=== PATIENT | male | born 1930 | race Caucasian/White ===

== ENCOUNTER 2016-06-01 18:03 | Inpatient (IN) | payer OTHER, BC ==
[~2016-06-01] VITALS: Ht 177.8 cm; Wt 78.5 kg
[~2016-06-01 18:03] MED LIST: ASPIRIN81 M1 PO; KEFLEX500 MG PO; LANSOPRAZOLE30 MG PO; LEVAQUIN500 MG PO; LO-DOSE ASPIRIN81 M2 PO; LORAZEPAM0.5 MG PO; PREVACID15 MG PO; TYLENOL EXTRA500 MG PO; XANAX0.5 MG PO; ZOLOFT50 MG PO
[2016-06-01 18:33] LABS: HEMATOCRIT 40.5 % (38.0-50.0); MCHC 35.6 G/DL (30.0-36.0); MEAN PLAT.VOLUME 10.1 uM^3 (9.0-12.4); PLATELET COUNT 170 K/uL (156-360); RBC DIS.WIDTH-CV 14.7 % (11.8-14.6); RED BLOOD COUNT 5.15 M/uL (4.00-5.50); WHITE BLOOD COUNT 7.6 K/uL (4.1-10.2)
[2016-06-01 18:34] LABS: MCV 78.6 FL (86-99)
[2016-06-01 18:41] LABS: CHLORIDE 99 mEq/L (99-109); POTASSIUM 4.2 mEq/L (3.7-5.4); SODIUM 130 mEq/L (136-147)
[2016-06-01 18:43] LABS: GLUCOSE 137 mg/dL (70-99)
[2016-06-01 18:44] LABS: ANION GAP 11 MEQ/L (2-14)
[2016-06-01 18:45] LABS: TOTAL BILIRUBIN 1.6 mg/dL (0.0-1.0)
[2016-06-01 18:47] LABS: ALKALINE PHOSPHATASE 248 IU/L (3-129); GFR ESTIMATE (CALCULATED) > 59 mL/min/
[2016-06-01 18:48] LABS: UREA NITROGEN (BUN) 17 mg/dL (9-23)
[2016-06-01 20:17] LABS: ADD MIUA? YES; BILIRUBIN NEGATIVE; BLOOD SMALL; COLOR YELLOW ((YELLOW)); GLUCOSE (STRIP) NEGATIVE; KETONES NEGATIVE; LEUKOCYTES LARGE; NITRITE NEGATIVE; PROTEIN (STRIP) NEGATIVE; SPECIFIC GRAVITY 1.013 (1.000-1.030); UROBILINOGEN 0.2 MG/DL (0.2-1.0)
[2016-06-01 20:24] LABS: TROP-I INTERPRETATION NEGATIVE; TROPONIN-I 0.06 ng/mL (0.0-0.30)
[2016-06-01 20:39] LABS: EPITHELIAL CELLS RARE; RED BLOOD CELLS 0-5 /HPF (0-5)
[2016-06-01 20:40] LABS: BACTERIA 2+; CASTS NONE SEEN /LPF; CRYSTALS NONE SEEN; MUCUS NONE SEEN; UCUL ADDED? YES
[2016-06-01] MEDS ORDERED: NITROFURANTOIN100 M3 PO (21:30)
[2016-06-01 23:24] LABS: D-DIMER ELISA 1.79 mg/L FEU (< 0.57); INTER. NORMALIZED RATIO 1.2; PROTHROMBIN TIME 12.5 (9.2-11.2); PTT 30.2 (25-32)
[2016-06-02 01:27] LABS: DIRECT BILIRUBIN 0.7 mg/dL (0.0-0.3)
[2016-06-02 03:32] LABS: TROP-I INTERPRETATION NEGATIVE; TROPONIN-I 0.01 ng/mL (0.0-0.30)
[2016-06-02 04:23] VITALS: BP 115/56
[2016-06-02 06:54] LABS: HEMATOCRIT 38.8 % (38.0-50.0); MCH 28.2 PG (29.0-34.0); MCHC 34.5 G/DL (30.0-36.0); MCV 81.7 FL (86-99); MEAN PLAT.VOLUME 10.8 uM^3 (9.0-12.4); PLATELET COUNT 149 K/uL (156-360); RBC DIS.WIDTH-CV 14.9 % (11.8-14.6); RBC DIS.WIDTH-SD 44.1 % (39-53); RED BLOOD COUNT 4.75 M/uL (4.00-5.50); WHITE BLOOD COUNT 5.5 K/uL (4.1-10.2)
[2016-06-02 07:15] LABS: ALKALINE PHOSPHATASE 212 IU/L (3-129); ANION GAP 12 MEQ/L (2-14); CHLORIDE 104 MEQ/L (99-109); GFR ESTIMATE (CALCULATED) > 59 mL/min/; GLUCOSE 135 mg/dL (70-99); POTASSIUM 4.1 MEQ/L (3.7-5.4); SAMPLE HEMOLYSIS CHECK 0; SAMPLE ICTERIC CHECK 0; SAMPLE LIPEMIA CHECK 0; TOTAL BILIRUBIN 1.1 MG/DL (0.0-1.0); UREA NITROGEN (BUN) 15 mg/dL (9-23)
[2016-06-02 07:20] LABS: SODIUM 140 MEQ/L (136-147)
[2016-06-02 07:22] LABS: BASOPHIL COUNT 0.1 K/uL (0-0.1); EOSINOPHIL COUNT 0.8 K/uL (0-0.3); IMMATURE GRANULOCYTE (%) 0.2 % (0.0-0.7); LYMPHOCYTE COUNT 1.4 K/uL (1.0-2.8); MONOCYTE (%) 10.8 % (3-12); MONOCYTE COUNT 0.6 K/uL (0-0.8); NEUTROPHIL (%) 46.5 % (45-76); NEUTROPHIL COUNT 2.6 K/uL (1.8-6.4)
[2016-06-02 08:00] VITALS: BP 121/73
[2016-06-02 08:45] LABS: Estimated Average Glucose 154 mg/dL (70-123)
[2016-06-02 09:45] LABS: HEMATOLOGY COMMENT 1 SMEAR COMPATIBLE; USER ID STC
[2016-06-02 09:47] LABS: TROP-I INTERPRETATION NEGATIVE; TROPONIN-I 0.01 ng/mL (0.0-0.30)
[2016-06-02 12:00] VITALS: BP 123/71
[2016-06-02 20:42] VITALS: BP 142/69
[2016-06-02 21:05] LABS: POINT-OF-CARE METER ID UU13113700
[2016-06-03] VITALS: BP 119/76
[2016-06-03 04:00] VITALS: BP 129/82
[2016-06-03 07:17] LABS: ALKALINE PHOSPHATASE 191 IU/L (3-129); ANION GAP 9 MEQ/L (2-14); CHLORIDE 105 MEQ/L (99-109); DIRECT BILIRUBIN 0.3 mg/dL (0.0-0.3); GFR ESTIMATE (CALCULATED) > 59 mL/min/; GLUCOSE 131 mg/dL (70-99); POTASSIUM 3.9 MEQ/L (3.7-5.4); SAMPLE HEMOLYSIS CHECK 0; SAMPLE ICTERIC CHECK 0; SAMPLE LIPEMIA CHECK 0; SODIUM 138 MEQ/L (136-147); TOTAL BILIRUBIN 0.9 MG/DL (0.0-1.0); UREA NITROGEN (BUN) 11 mg/dL (9-23)
[2016-06-03 09:09] VITALS: BP 147/88
[2016-06-03 12:47] LABS: POINT-OF-CARE METER ID UU13113831
== END 2016-06-03 12:58 | disposition home or self-care (01) | DRG 690 ==
LOC: EME 18:03 → EDOF 22:04 → 5WEST 22:04 → EDOF 22:04 → 5WEST 06-02 00:31
PROVIDERS: Hospitalist; Internal Medicine; Nurse Practitioner Adult Health
DX: N39.0 Urinary tract infection, site not specified (principal); E87.1 Hypo-osmolality and hyponatremia; E86.0 Dehydration; R55 Syncope and collapse; R53.1 Weakness; R74.0 Nonspecific elevation of levels of transaminase and lactic acid dehydrogenase [LDH]; T37.0X5A Adverse effect of sulfonamides, initial encounter; T37.8X5A Adverse effect of other specified systemic anti-infectives and antiparasitics, initial encounter; K21.9 Gastro-esophageal reflux disease without esophagitis; K22.70 Barrett's esophagus without dysplasia; E11.9 Type 2 diabetes mellitus without complications; Z85.46 Personal history of malignant neoplasm of prostate; Z86.73 Personal history of transient ischemic attack (TIA), and cerebral infarction without residual deficits; Z88.0 Allergy status to penicillin
CPT/HCPCS: 71100; 71275; 74176; 80048; 80053; 80076; 81003; 82248; 82728; 82948; 83036; 83605; 84484; 85025; 85027; 85379; 85610; 85730; 87040; 87086; 93005; 99281; 99285; G0103; G0378; J0696; J0744; J1644; J1815; J7030; J7050

== ENCOUNTER 2017-07-04 20:29 | Observation (INO) | payer OTHER, BC ==
[~2017-07-04] VITALS: Ht 172.7 cm; Wt 74.5 kg
[~2017-07-04 20:29] MED LIST changes: +NITROFURANTOIN100 M3 PO
[2017-07-04 21:18] LABS: HEMATOCRIT 41.4 % (38.0-50.0); HEMOGLOBIN 13.6 G/DL (12.5-16.6); MCH 26.8 PG (29.0-34.0); MCHC 32.9 G/DL (30.0-36.0); MCV 81.5 FL (86-99); PLATELET COUNT 236 K/uL (156-360); RBC DIS.WIDTH-CV 15.1 % (11.8-14.6); RBC DIS.WIDTH-SD 44.5 % (39-53); RED BLOOD COUNT 5.08 M/uL (4.00-5.50); WHITE BLOOD COUNT 7.1 K/uL (4.1-10.2)
[2017-07-04 21:30] LABS: ALBUMIN 3.7 g/dL (3.2-4.8); CHLORIDE 104 mEq/L (99-109); POTASSIUM 4.6 mEq/L (3.7-5.4); SODIUM 139 mEq/L (136-147)
[2017-07-04 21:31] LABS: MAGNESIUM 2.1 mg/dL (1.3-2.7)
[2017-07-04 21:33] LABS: GLUCOSE 126 mg/dL (70-99); TOTAL PROTEIN 6.9 g/dL (6.4-8.3)
[2017-07-04 21:35] LABS: TOTAL BILIRUBIN 0.6 mg/dL (0.0-1.0)
[2017-07-04 21:36] LABS: ALKALINE PHOSPHATASE 67 IU/L (3-129); INTER. NORMALIZED RATIO 1.2
[2017-07-04 21:37] LABS: GFR ESTIMATE (CALCULATED) > 59 mL/min/ (58.99-99999)
[2017-07-04 21:38] LABS: AST (GOT) 13 IU/L (2-34); UREA NITROGEN (BUN) 19 mg/dL (9-23)
[2017-07-04 21:39] LABS: ALT (GPT) 10 IU/L (3-49); PTT 30.4 SEC (25-37)
[2017-07-04 21:42] LABS: TROP-I INTERPRETATION NEGATIVE; TROPONIN-I < 0.01 ng/mL (0.0-0.30)
[2017-07-04 22:00] LABS: APPEARANCE CLEAR ((CLEAR)); BILIRUBIN NEGATIVE; BLOOD MODERATE; COLOR YELLOW ((YELLOW)); GLUCOSE (STRIP) NEGATIVE; KETONES NEGATIVE; LEUKOCYTES LARGE; NITRITE NEGATIVE; PROTEIN (STRIP) NEGATIVE; SPECIFIC GRAVITY 1.005 (1.000-1.030); UROBILINOGEN 0.2 MG/DL (0.2-1.0)
[2017-07-04 22:22] LABS: BACTERIA RARE /HPF; EPITHELIAL CELLS NONE SEEN /HPF; MUCUS NONE SEEN /LPF; RED BLOOD CELLS 0-5 /HPF (0-5); UCUL ADDED? YES; WHITE BLOOD CELLS 30-40 /HPF (0-5)
[2017-07-04] MEDS ORDERED: FLAGYL500 MG PO (23:04)
[2017-07-04] MEDS ORDERED: PEPCID AC20 M1 PO (23:05)
[2017-07-04] MEDS ORDERED: VITAMIN D2000 UNI1 PO (23:08)
[2017-07-04] MEDS ORDERED: ABILIFY2 MG PO (23:10)
[2017-07-04] MEDS ORDERED: PROBIOTIC1 EAC7 PO (23:11)
[2017-07-04] MEDS ORDERED: CRANBERRY TABL1 EACH PO (23:12)
[2017-07-05 02:00] VITALS: BP 156/90
[2017-07-05 08:45] LABS: HEMATOCRIT 39.5 % (38.0-50.0); HEMOGLOBIN 13.3 G/DL (12.5-16.6); MCH 27.6 PG (29.0-34.0); MCHC 33.7 G/DL (30.0-36.0); PLATELET COUNT 201 K/uL (156-360); RBC DIS.WIDTH-CV 15.4 % (11.8-14.6); RED BLOOD COUNT 4.82 M/uL (4.00-5.50); WHITE BLOOD COUNT 6.6 K/uL (4.1-10.2)
[2017-07-05 09:16] LABS: TROP-I INTERPRETATION NEGATIVE; TROPONIN-I < 0.01 ng/mL (0.0-0.30)
[2017-07-05 09:59] LABS: CHLORIDE 107 MEQ/L (99-109); CREATININE 0.9 MG/DL (0.6-1.3); GFR ESTIMATE (CALCULATED) > 59 mL/min/ (58.99-99999); GLUCOSE 132 mg/dL (70-99); POTASSIUM 4.5 MEQ/L (3.7-5.4); SODIUM 142 MEQ/L (136-147); UREA NITROGEN (BUN) 17 mg/dL (9-23)
[2017-07-05 11:44] VITALS: BP 134/72
[2017-07-05] MEDS ORDERED: CIPRO500 MG PO (11:52)
== END 2017-07-05 15:18 | disposition home or self-care (01) ==
LOC: EME 20:29 → EDOF 07-05 00:23 → ENRESERV 07-05 00:26 → 5WEST 07-05 01:50
PROVIDERS: Emergency Medicine; Nurse Practitioner Adult Health
DX: N39.0 Urinary tract infection, site not specified (principal); R00.1 Bradycardia, unspecified; I44.0 Atrioventricular block, first degree; Z87.440 Personal history of urinary (tract) infections; E11.9 Type 2 diabetes mellitus without complications; K21.9 Gastro-esophageal reflux disease without esophagitis; Z86.73 Personal history of transient ischemic attack (TIA), and cerebral infarction without residual deficits; Z79.82 Long term (current) use of aspirin; Z88.0 Allergy status to penicillin
CPT/HCPCS: 71045; 80048; 80053; 81003; 83735; 84484; 85027; 85610; 85730; 87086 GA; 93005; 99281; 99285; G0378; J0744; J1644; J7030

== ENCOUNTER 2017-08-15 14:28 | Emergency (ER) | payer OTHER, BC ==
[~2017-08-15] VITALS: Ht 172.7 cm; Wt 74.8 kg
[~2017-08-15 14:28] MED LIST changes: +ABILIFY2 MG PO; +CIPRO500 MG PO; +CRANBERRY TABL1 EACH PO; +FLAGYL500 MG PO; +PEPCID AC20 M1 PO; +PROBIOTIC1 EAC7 PO; +VITAMIN D2000 UNI1 PO
[2017-08-15 15:40] LABS: HEMATOCRIT 41.5 % (38.0-50.0); HEMOGLOBIN 13.9 G/DL (12.5-16.6); MCH 27.3 PG (29.0-34.0); MCHC 33.5 G/DL (30.0-36.0); MCV 81.4 FL (86-99); PLATELET COUNT 259 K/uL (156-360); RBC DIS.WIDTH-CV 16.3 % (11.8-14.6); RBC DIS.WIDTH-SD 47.8 % (39-53)
[2017-08-15 15:44] LABS: ALBUMIN 3.9 g/dL (3.2-4.8); CHLORIDE 103 mEq/L (99-109); POTASSIUM 4.7 mEq/L (3.7-5.4); SODIUM 140 mEq/L (136-147)
[2017-08-15 15:46] LABS: GLUCOSE 115 mg/dL (70-99); TOTAL PROTEIN 7.4 g/dL (6.4-8.3)
[2017-08-15 15:48] LABS: TOTAL BILIRUBIN 0.6 mg/dL (0.0-1.0)
[2017-08-15 15:49] LABS: ALKALINE PHOSPHATASE 72 IU/L (3-129)
[2017-08-15 15:50] LABS: CREATININE 1.1 mg/dL (0.6-1.3); GFR ESTIMATE (CALCULATED) > 59 mL/min/ (58.99-99999)
[2017-08-15 15:51] LABS: AST (GOT) 15 IU/L (2-34); UREA NITROGEN (BUN) 20 mg/dL (9-23)
[2017-08-15 15:53] LABS: ALT (GPT) 13 IU/L (3-49)
[2017-08-15 17:05] LABS: APPEARANCE SL.HAZY ((CLEAR)); BILIRUBIN NEGATIVE; BLOOD MODERATE; COLOR YELLOW ((YELLOW)); GLUCOSE (STRIP) NEGATIVE; KETONES NEGATIVE; LEUKOCYTES LARGE; NITRITE POSITIVE; PROTEIN (STRIP) 30; SPECIFIC GRAVITY 1.011 (1.000-1.030); UROBILINOGEN 0.2 MG/DL (0.2-1.0)
[2017-08-15 17:26] LABS: BACTERIA 1+ /HPF; EPITHELIAL CELLS RARE /HPF; MUCUS TRACE /LPF; RED BLOOD CELLS RARE /HPF (0-5); UCUL ADDED? YES; WHITE BLOOD CELLS TNTC /HPF (0-5)
[2017-08-15 19:24] VITALS: BP 112/80
== END 2017-08-15 19:27 | disposition home or self-care (01) ==
LOC: EME 14:28
DX: N39.0 Urinary tract infection, site not specified (principal); Z87.440 Personal history of urinary (tract) infections; F32.9 Major depressive disorder, single episode, unspecified; K21.9 Gastro-esophageal reflux disease without esophagitis; Z86.73 Personal history of transient ischemic attack (TIA), and cerebral infarction without residual deficits; Z88.0 Allergy status to penicillin
CPT/HCPCS: 80053; 81003; 85027; 87086 GA; 99281; 99284; J0696

== ENCOUNTER 2017-10-10 22:04 | Inpatient (IN) | payer OTHER, BC ==
[~2017-10-10] VITALS: Ht 172.7 cm; Wt 74.1 kg
[~2017-10-10 22:04] MED LIST changes: +CALMOSEPTINE O120 GM TP
[2017-10-11 06:06] VITALS: BP 170/81
[2017-10-11 12:23] VITALS: BP 128/63
[2017-10-11 15:00] VITALS: BP 110/55
[2017-10-11 20:21] VITALS: BP 110/57
[2017-10-12] VITALS (7 sets, daily range): BP systolic 116–124; BP diastolic 57–71
[2017-10-12 06:49] LABS: HEMATOCRIT 32.7 % (38.0-50.0); HEMOGLOBIN 10.6 G/DL (12.5-16.6); MCH 27.2 PG (29.0-34.0); MCHC 32.4 G/DL (30.0-36.0); MCV 83.8 FL (86-99); PLATELET COUNT 187 K/uL (156-360); RBC DIS.WIDTH-CV 17.3 % (11.8-14.6); RBC DIS.WIDTH-SD 53.2 % (39-53); WHITE BLOOD COUNT 7.8 K/uL (4.1-10.2)
[2017-10-12 07:19] LABS: ALKALINE PHOSPHATASE 52 IU/L (3-129); ALT (GPT) 9 IU/L (3-49); AST (GOT) 13 IU/L (2-34); CHLORIDE 103 MEQ/L (99-109); CREATININE 1.2 MG/DL (0.6-1.3); GFR ESTIMATE (CALCULATED) > 59 mL/min/ (58.99-99999); GLUCOSE 137 mg/dL (70-99); MAGNESIUM 1.9 mg/dl (1.3-2.7); POTASSIUM 4.5 MEQ/L (3.7-5.4); SODIUM 137 MEQ/L (136-147); TOTAL BILIRUBIN 1.1 MG/DL (0.0-1.0); TOTAL PROTEIN 5.7 G/DL (6.4-8.3); UREA NITROGEN (BUN) 17 mg/dL (9-23)
[2017-10-13 04:15] VITALS: BP 99/61
[2017-10-13 06:42] LABS: HEMOGLOBIN 11.2 G/DL (12.5-16.6); MCHC 32.9 G/DL (30.0-36.0); MCV 81.9 FL (86-99); PLATELET COUNT 184 K/uL (156-360); RBC DIS.WIDTH-CV 16.8 % (11.8-14.6); RBC DIS.WIDTH-SD 50.4 % (39-53); RED BLOOD COUNT 4.15 M/uL (4.00-5.50)
[2017-10-13 07:16] LABS: CHLORIDE 102 MEQ/L (99-109); CREATININE 1.1 MG/DL (0.6-1.3); GFR ESTIMATE (CALCULATED) > 59 mL/min/ (58.99-99999); GLUCOSE 117 mg/dL (70-99); POTASSIUM 4.4 MEQ/L (3.7-5.4); SODIUM 137 MEQ/L (136-147); UREA NITROGEN (BUN) 14 mg/dL (9-23)
[2017-10-13 08:10] VITALS: BP 150/71
[2017-10-13 10:58] VITALS: BP 124/68
[2017-10-13 16:00] VITALS: BP 134/78
[2017-10-13 17:50] VITALS: BP 134/78
[2017-10-14 00:25] VITALS: BP 128/73
[2017-10-14 04:00] VITALS: BP 125/78
[2017-10-14 06:55] VITALS: BP 143/80
[2017-10-14 11:10] VITALS: BP 138/74
[2017-10-14 15:25] VITALS: BP 150/84
[2017-10-14 20:07] VITALS: BP 124/69
[2017-10-15 00:25] VITALS: BP 117/78
[2017-10-15 04:18] VITALS: BP 140/63
[2017-10-15 06:08] LABS: HEMATOCRIT 36.1 % (38.0-50.0); HEMOGLOBIN 11.8 G/DL (12.5-16.6); MCH 26.7 PG (29.0-34.0); MCHC 32.7 G/DL (30.0-36.0); MCV 81.7 FL (86-99); PLATELET COUNT 177 K/uL (156-360); RBC DIS.WIDTH-CV 16.7 % (11.8-14.6); RBC DIS.WIDTH-SD 49.7 % (39-53); RED BLOOD COUNT 4.42 M/uL (4.00-5.50); WHITE BLOOD COUNT 6.8 K/uL (4.1-10.2)
[2017-10-15 06:18] LABS: CHLORIDE 103 MEQ/L (99-109); CREATININE 1.1 MG/DL (0.6-1.3); GFR ESTIMATE (CALCULATED) > 59 mL/min/ (58.99-99999); GLUCOSE 119 mg/dL (70-99); POTASSIUM 3.9 MEQ/L (3.7-5.4); SODIUM 136 MEQ/L (136-147); UREA NITROGEN (BUN) 20 mg/dL (9-23)
[2017-10-15 07:13] VITALS: BP 134/79
[2017-10-15 12:07] VITALS: BP 122/70
[2017-10-15 16:17] VITALS: BP 130/72
[2017-10-15 19:59] VITALS: BP 130/59
[2017-10-16 00:30] VITALS: BP 132/68
[2017-10-16 03:54] VITALS: BP 139/67
[2017-10-16 06:50] VITALS: BP 129/75
[2017-10-16 11:20] VITALS: BP 129/70
== END 2017-10-16 14:33 | disposition home health service (06) | DRG 331 ==
LOC: ENRESERV 22:04 → 5EAST 10-11 05:32 → 2SOUTH 10-11 05:32 → ENRESERV 10-11 10:15 → 2SOUTH 10-11 10:27 → 5EAST 10-11 10:52 → 2SOUTH 10-13 08:25 → 5EAST 10-16 14:33
PROVIDERS: Physician Assistant; Surgery; Thoracic Surgery (Cardiothoracic Vascular Surgery)
PROC: 0D1L0Z4 Bypass Transverse Colon to Cutaneous, Open Approach (ICD-10-PCS; principal; 2017-10-11)
DX: C20 Malignant neoplasm of rectum (principal); R15.9 Full incontinence of feces; I48.91 Unspecified atrial fibrillation; F41.1 Generalized anxiety disorder; E11.9 Type 2 diabetes mellitus without complications; K21.9 Gastro-esophageal reflux disease without esophagitis; M19.90 Unspecified osteoarthritis, unspecified site; N39.3 Stress incontinence (female) (male); F32.9 Major depressive disorder, single episode, unspecified; Z85.46 Personal history of malignant neoplasm of prostate; Z90.79 Acquired absence of other genital organ(s); Z87.440 Personal history of urinary (tract) infections; Z85.828 Personal history of other malignant neoplasm of skin
CPT/HCPCS: 80048; 80053; 82378; 82948; 83735; 84100; 85027; 87077; 87086; 87186; 97530 GO; J0131; J0330; J1815; J2405; J3010; S0020; S0074

== ENCOUNTER 2017-11-28 11:17 | Observation (INO) | payer OTHER, BC ==
[~2017-11-28] VITALS: Ht 172.7 cm; Wt 72.4 kg
[2017-11-28 11:46] LABS: BASOPHIL (%) 1.4 % (0-1); BASOPHIL COUNT 0.1 K/uL (0-0.1); EOSINOPHIL (%) 3.9 % (0-5); EOSINOPHIL COUNT 0.1 K/uL (0-0.3); HEMATOCRIT 30.2 % (38.0-50.0); HEMOGLOBIN 10.2 G/DL (12.5-16.6); IMMATURE GRANULOCYTE (%) 1.1 % (0.0-0.7); LYMPHOCYTE (%) 15.1 % (15-42); LYMPHOCYTE COUNT 0.5 K/uL (1.0-2.8); MCH 28.1 PG (29.0-34.0); MCHC 33.8 G/DL (30.0-36.0); MCV 83.2 FL (86-99); MONOCYTE (%) 12.6 % (3-12); MONOCYTE COUNT 0.5 K/uL (0-0.8); NEUTROPHIL (%) 65.9 % (45-76); NEUTROPHIL COUNT 2.4 K/uL (1.8-6.4); PLATELET COUNT 157 K/uL (156-360); RBC DIS.WIDTH-CV 16.8 % (11.8-14.6); RBC DIS.WIDTH-SD 46.4 % (39-53); RED BLOOD COUNT 3.63 M/uL (4.00-5.50); WHITE BLOOD COUNT 3.6 K/uL (4.1-10.2)
[2017-11-28 11:56] LABS: CHLORIDE 105 mEq/L (99-109); POTASSIUM 3.9 mEq/L (3.7-5.4); SODIUM 139 mEq/L (136-147)
[2017-11-28 11:58] LABS: GLUCOSE 117 mg/dL (70-99)
[2017-11-28 12:02] LABS: GFR ESTIMATE (CALCULATED) > 59 mL/min/ (58.99-99999)
[2017-11-28 12:03] LABS: UREA NITROGEN (BUN) 15 mg/dL (9-23)
[2017-11-28 12:08] LABS: TROP-I INTERPRETATION NEGATIVE; TROPONIN-I < 0.01 ng/mL (0.0-0.30)
[2017-11-28] MEDS ORDERED: PROBIOTIC1 EAC1 PO (14:53)
[2017-11-28] MEDS ORDERED: XELODA500 MG PO (14:54)
[2017-11-28] MEDS ORDERED: FLOMAX0.4 MG PO (14:55)
[2017-11-28] MEDS ORDERED: PHENERGAN-CODE120 ML PO (14:55)
[2017-11-28] MEDS ORDERED: TYLENOL EXTRA500 MG PO (14:55)
[2017-11-28] MEDS ORDERED: REMEDY NUTRASHI59 ML TP (14:56)
[2017-11-28] MEDS ORDERED: AQUAPHOR W-NAT50 GM TP (14:56)
[2017-11-28] MEDS ORDERED: [UNRECOGNIZED DRUG - OTHER] TP (14:57)
[2017-11-28 17:35] VITALS: BP 148/64
[2017-11-28 18:28] LABS: TROP-I INTERPRETATION NEGATIVE; TROPONIN-I < 0.01 ng/mL (0.0-0.30)
[2017-11-28 19:00] VITALS: BP 132/60
[2017-11-28 22:45] VITALS: BP 123/59
[2017-11-29 01:17] LABS: TROP-I INTERPRETATION NEGATIVE; TROPONIN-I < 0.01 ng/mL (0.0-0.30)
[2017-11-29 04:30] VITALS: BP 141/63
[2017-11-29 06:11] LABS: ALBUMIN 2.9 G/DL (3.2-4.8); ALKALINE PHOSPHATASE 46 IU/L (3-129); ALT (GPT) 11 IU/L (3-49); AST (GOT) 12 IU/L (2-34); CHLORIDE 106 MEQ/L (99-109); GFR ESTIMATE (CALCULATED) > 59 mL/min/ (58.99-99999); GLUCOSE 123 mg/dL (70-99); POTASSIUM 3.7 MEQ/L (3.7-5.4); SODIUM 141 MEQ/L (136-147); TOTAL PROTEIN 5.4 G/DL (6.4-8.3); UREA NITROGEN (BUN) 13 mg/dL (9-23)
[2017-11-29 06:18] LABS: TOTAL BILIRUBIN 0.9 MG/DL (0.0-1.0)
[2017-11-29 07:05] VITALS: BP 139/74
[2017-11-29 11:01] VITALS: BP 133/63
== END 2017-11-29 14:08 | disposition home or self-care (01) ==
LOC: EME 11:17 → 4EAST 14:23 → EDOF 14:23 → ENRESERV 14:24 → 4EAST 16:20 → ENPENDDIS 11-29 → 4EAST 11-29 14:08
PROVIDERS: Emergency Medicine; Internal Medicine
DX: I44.1 Atrioventricular block, second degree (principal); R00.1 Bradycardia, unspecified; C20 Malignant neoplasm of rectum; Z93.3 Colostomy status; D50.9 Iron deficiency anemia, unspecified; D70.9 Neutropenia, unspecified; Z92.3 Personal history of irradiation; Z92.21 Personal history of antineoplastic chemotherapy; R53.82 Chronic fatigue, unspecified; Z85.46 Personal history of malignant neoplasm of prostate; Z90.79 Acquired absence of other genital organ(s); R32 Unspecified urinary incontinence; F32.9 Major depressive disorder, single episode, unspecified; K21.9 Gastro-esophageal reflux disease without esophagitis; Z88.0 Allergy status to penicillin
CPT/HCPCS: 71045; 77336; 80048; 80053; 84484; 85025; 85730; 93005; 99281; 99285; G0378; J7030